=== PATIENT | male | born 1970 | race Caucasian/White ===

== ENCOUNTER 2021-03-03 06:35 | Day surgery (SDC) | payer BC, OTHER ==
[~2021-03-03] VITALS: Ht 198.1 cm; Wt 130.0 kg
[~2021-03-03 06:35] MED LIST: LISINOPRIL20 MG PO; METOPROLOL SUCC50 MG PO
--- NOTE | 2021-03-03 08:23 | NUR ---
03/03/21 0823 Alysha Collins 0856 PT ARRIVED TO PACU ON 2L VIA NC, PT WAKES EASILY AND DENIES PAIN AND NAUSEA. VSS.
--- NOTE | 2021-03-03 09:52 | NUR ---
PT ALERT, ORIENTED AND SUPPORTED BY HIS AMOS.PT IS HERE FOR HIS FIRST SCOPE. HE ADMITTED PREP WAS A LITTLE BIT OF A CHALLENGE, BUT MADE IT. AMOS WILL REMAIN TO LA. ALL QUESTIONS ASKED ANSWERED, PT REQUESTED PRAYER, WILL FOLLOW NEEDED
--- NOTE | 2021-03-04 15:08 | OR ---
[facility] [address] [place], [place] [address] Signed DATE OF OPERATION: 03/03/2021 SURGEON: Jose M Loepz MD PREOPERATIVE DIAGNOSES: 1. Colon screening. 2. Family history of colon cancer (uncles) .. POSTOPERATIVE DIAGNOSES: 1. Minimal diverticula of sigmoid. 2. Polyps x4. PROCEDURE: Total colonoscopy to cecum with hot snare polypectomy x3 and cold morcellation polypectomy x1. ANESTHESIA: Intravenous sedation, fentanyl 100 mcg and Versed 4 mg. INDICATION: This 50-year-old dark-skinned man is a patient of Dr. Saran Harmon of [place]. He is referred for colon screening. He has no symptoms of bleeding, diarrhea or constipation but does have family history of colon cancer in two maternal uncles. He is admitted at this time to undergo screening colonoscopy. He understands the risks of bleeding, infection, perforation, and other unforeseen complications. FINDINGS: The prep was quite excellent. Complete colonoscopy was undertaken to the cecum. He had scattered diverticula of the sigmoid colon. More notably he had four polyps, one about 8 mm in the proximal ascending colon and another about 3 mm and a relatively larger polyp of the rectum with a long stalk and at 40 cm a sessile polyp, all of them adenomatous in appearance. All were excised completely. There were no other findings of concern. He did have some external hemorrhoids as well. DESCRIPTION OF PROCEDURE: The patient was brought to the endoscopy suite and placed in the lateral decubitus position, given intravenous sedation to the point of slurred speech and nystagmus. Digital rectal examination was normal. An Olympus video colonoscope was passed in the rectum and manipulated throughout the Electronically Signed By: JOSE M LOPEZ MD 03/04/21 1508 PATIENT NAME: SUSI YANG OPERATIVE REPORT DATE OF : 68 REPORT #: [id number] PHYSICIAN: JOSE M LOPEZ MD PCP: SARAN HARMON MD REPORT IS CONFIDENTIAL AND NOT TO BE RELEASED WITHOUT AUTHORIZATION [facility] [address] [place], [place] [address] Signed colon ultimately intubating the cecum itself. The ileocecal valve and appendiceal orifice were normal. Noted was a sessile polyp at the junction between the ascending colon and the cecum. This was excised with hot snare polypectomy technique. Another small polyp nearby was excised with cold morcellation technique. The scope was withdrawn further. There were no other findings until the sigmoid at about 40 cm with another sessile polyp was noted, this was excised with hot snare technique as well. This was passed for pathology as well. Further withdrawal showed no other abnormality until the rectosigmoid at approximately 10 cm from much larger adenomatous polyp was noted. This was on a thin stalk. This was excised with hot snare polypectomy technique as well. All polyps were recovered and sent for pathology. Retroflexed view was otherwise normal. Scope was removed and the patient was taken to the recovery room in good condition. CONCLUDING DIAGNOSIS: Polyps x4, all excised and all retrieved. PLAN: Recommend repeat colonoscopy in three years, sooner if clinically indicated. He will return to the ongoing care of Dr. Harmon in [place] otherwise Jose M Lopez MD JM/MODL /[id number] cc: Saran Harmon MD Copies: SARAN HARMON MD ~ Electronically Signed By: JOSE M LOPEZ MD 03/04/21 1508 PATIENT NAME: SUSI YANG OPERATIVE REPORT DATE OF : [birth year] REPORT #: [id number] PHYSICIAN: JOSE M LOPEZ MD PCP: SARAN HARMON MD REPORT IS CONFIDENTIAL AND NOT TO BE RELEASED WITHOUT AUTHORIZATION
--- NOTE | 2021-03-06 15:31 | PATH ---
[facility] [address] [place], [place] [address] Signed SPECIMEN(S): A ASCENDING/RIGHT PROXIMAL COLON POLYP SPECIMEN(S): B SIGMOID COLON POLYP AT 40 CM SPECIMEN(S): C RECTAL COLON POLYP SPECIMEN SOURCE: A. ASCENDING/RIGHT PROXIMAL COLON POLYP B. SIGMOID COLON POLYP AT 40 CM C. RECTAL COLON POLYP CLINICAL HISTORY: Preop: Family history of colon cancer; screening. Postop: Polyps x 4; diverticulosis FINAL PATHOLOGIC DIAGNOSIS: A. Ascending / right proximal colon polyp: - Tubular adenoma (multiple fragments). B. Sigmoid colon polyp at 40 cm: - Tubular adenoma (one fragment). C. Rectal colon polyp: - Tubular adenoma (multiple fragments). JVR:juan:C2NR MICROSCOPIC EXAMINATION: Histologic sections of all submitted blocks are examined by light microscopy. These findings, together with the gross examination, support the pathologic diagnosis. GROSS DESCRIPTION: Three specimens are received in three containers, labeled "SR." A. The specimen, labeled "SR, #1," and designated on the requisition "proximal colon ascending/right polypectomy," is received in formalin and consists of seven red to johns soft tissue fragments that measure 0.2 to 0.8 cm in greatest dimension. The specimen is entirely submitted in cassette (A1). B. The specimen, labeled "SR, #2," and designated on the requisition "sigmoid colon polypectomy 40 cm," is received in formalin and consists of one polypoid johns soft tissue fragment that measures 0.6 cm in greatest dimension. The specimen is entirely submitted in cassette (B1). C. The specimen, labeled "SR #3," and designated on the requisition "rectum colon polypectomy," is received in formalin and consists of multiple johns soft tissue fragments that measure less than 0.1 PATIENT NAME: SUSI YANG PATHOLOGY DATE OF : [birth year] REPORT #: [id number] PHYSICIAN: SAMINA PATHOLOGY PCP: SARAN HARMON MD REPORT IS CONFIDENTIAL AND NOT TO BE RELEASED WITHOUT AUTHORIZATION [facility] [address] [place], [place] [address] Signed up to 1.2 cm in greatest dimension. Grossly definitive resection margins are not identified. The specimen is entirely submitted in cassette (C1). AI (under the direct supervision of a pathologist) The Gross Description was prepared using a voice recognition system. The report was reviewed for accuracy; however, sound-alike word errors, addition and/or deletions may occur. If there is any question about this report, please contact Client Services. PERFORMING LABORATORY: The technical component was performed by [facility], [address] [place] [address] (Pre Algebra Teacher: Shayy Romero MD; CLIA# [id number]). Professional interpretation was performed by [facility] [address]. Diagnostician: Sawyer Rebolledo MD Pathologist Electronically Signed 03/06/2021 Copies: ~ PATIENT NAME: SUSI YANG PATHOLOGY DATE OF : [birth year] REPORT #: [id number] PHYSICIAN: SAMINA AKERS PCP: SARAN HARMON MD REPORT IS CONFIDENTIAL AND NOT TO BE RELEASED WITHOUT AUTHORIZATION
== END 2021-03-03 08:48 | disposition home or self-care (01) ==
LOC: DS 06:35 → OPS 06:35 → DS 06:45 → OPS 06:45
PROVIDERS: ATTEND Surgery
PROC: 0DBN8ZZ Excision of Sigmoid Colon, Via Natural or Artificial Opening Endoscopic (ICD-10-PCS; 2021-03-03)
PROC: 0DBF8ZZ Excision of Right Large Intestine, Via Natural or Artificial Opening Endoscopic (ICD-10-PCS; 2021-03-03)
PROC: 0DBF8ZZ Excision of Right Large Intestine, Via Natural or Artificial Opening Endoscopic (ICD-10-PCS; principal; 2021-03-03 06:45)
DX: Z12.11 Encounter for screening for malignant neoplasm of colon (principal); D12.2 Benign neoplasm of ascending colon; D12.5 Benign neoplasm of sigmoid colon; D12.8 Benign neoplasm of rectum; K57.30 Diverticulosis of large intestine without perforation or abscess without bleeding; I10 Essential (primary) hypertension; Z80.0 Family history of malignant neoplasm of digestive organs; Z86.16 Personal history of COVID-19
CPT/HCPCS: 99153; G0500; J2250; J3010

== ENCOUNTER 2021-10-12 17:08 | Emergency (ER) | payer BC, OTHER ==
[~2021-10-12] VITALS: Ht 198.1 cm; Wt 130.8 kg
== END 2021-10-12 22:42 | disposition home or self-care (01) ==
LOC: ED 17:08
DX: E86.0 Dehydration (principal); M62.82 Rhabdomyolysis; I10 Essential (primary) hypertension; Z79.899 Other long term (current) drug therapy
CPT/HCPCS: 36415; 80053; 81001; 82553; 83735; 85025; 96360; 96361; 99284-25; J7030; J7121

== ENCOUNTER 2024-07-27 07:25 | Day surgery (SDC) | payer BC, OTHER ==
[~2024-07-27] VITALS: Ht 198.1 cm; Wt 127.3 kg
[~2024-07-27 07:25] MED LIST changes: +IBLOOD GLUCOSE TEST STRIP 1 EA TEST VI PRN; +LACTATED RINGER'S 1,000 ML IV SCH; +LIDOCAINE HCL 1% 5 ML SDV INJ ONE; +MIDAZOLAM HCL 5 MG/5 ML VIAL IV PRN; +fentaNYL citrate 100 MCG/2 ML VIAL IV PRN
[2024-07-27 07:42] VITALS: BP 149/97
[2024-07-27] MEDS ORDERED: MIDAZOLAM HCL 5 MG/5 ML VIAL ONE (08:49)
[2024-07-27] MEDS ORDERED: fentaNYL citrate 100 MCG/2 ML VIAL ONE (08:49)
--- NOTE | 2024-07-27 09:43 | NUR ---
07/27/24 0943 Lu Ramon 0930-PT ARRIVES TO PACU VIA STRETCHER, RESTING ON LT SIDE, PT A+O X4, DENIES PAIN OR NAUSEA VSS ON 2L VIA NC, PT ENCOURAGED TO PASS GAS. 0935-PT TITRATED TO RA, VS REMAIN STABLE, PT RESTING W/ EYES CLOSED BUT AWAKENS EASILY TO VOICE. 0938- AT BEDSIDE TO DISCUSS PROCEEDURE RESULTS AND PLAN OF CARE W/ PT, ALL QUESTIONS ANSWERED.
[2024-07-27 10:17] VITALS: BP 135/96
--- NOTE | 2024-07-27 14:33 | OR ---
[facility] [address] [place], [place] [address] Signed DATE OF OPERATION: 07/27/2024 SURGEON: Jose M Lopez MD PREOPERATIVE DIAGNOSES: 1. History of tubular adenomas 2020. 2. Recent discovery left thyroid nodule 1.5 cm. POSTOPERATIVE DIAGNOSES: 1. Sigmoid diverticulosis. 2. Small polyps x4 (probably hyperplastic). PROCEDURE: Total colonoscopy to cecum with cold morcellation polypectomy x4. ANESTHESIA: Intravenous sedation, fentanyl 100 mcg and Versed 8 mg. INDICATION: This 53-year-old white man is a patient of Dr. Saran Harmon in [place]. He underwent colonoscopy in 2020 by me where he was found to have four tubular adenomas. He has a family history of gastric cancer in an uncle, but no family members with colon cancer. On recent examination, I did discover a nodule in the left thyroid, confirmed on ultrasound to be a 1.5 cm thyroid nodule, for which he is going to undergo ultrasound-guided fine-needle aspiration biopsy by me next week. He is admitted at this time to undergo colonoscopy. He understands the risk of bleeding, infection, and perforation. FINDINGS: The prep was good. Complete colonoscopy was undertaken of the cecum. He had diverticula of the sigmoid colon. There were four small polyps, three in aggregate in the sigmoid and one in the left colon, all of them suggestive of hyperplasia rather than adenomatous change. There were no other findings of concern. DESCRIPTION OF PROCEDURE: The patient was brought to the endoscopy suite and placed in the lateral decubitus position, given intravenous sedation to the point of slurred speech and nystagmus with full cardiopulmonary monitoring. Digital rectal examination was normal. Electronically Signed By: JOSE M LOPEZ MD 07/27/24 1433 PATIENT NAME: SUSI YANG OPERATIVE REPORT DATE OF : 68 REPORT #: [id number] PHYSICIAN: JOSE M LOPEZ MD PCP: SARAN HARMON MD REPORT IS CONFIDENTIAL AND NOT TO BE RELEASED WITHOUT AUTHORIZATION [facility] [address] [place], [place] [address] Signed An Olympus video colonoscope was passed in the rectum and manipulated throughout the colon noting diverticula of the sigmoid and left colon. Scope was ultimately advanced to the cecum. The ileocecal valve and appendiceal orifice were normal. Scope was withdrawn. Examination from there showed no sign of abnormality into the mid descending colon where a small polyp appeared. This was excised with cold morcellation technique. Further withdrawal showed an aggregate of what appeared to be hyperplastic polyps of the sigmoid. These were excised in total three to be exact. Further withdrawal showed no other abnormality. Retroflexed view of the rectum was normal. Scope was removed. The patient was taken to the recovery room in good condition. CONCLUDING DIAGNOSES: 1. Polyps x4, probably hyperplastic. 2. Diverticulosis. 3. Asymptomatic left thyroid nodule. PLAN: Would recommend repeat colonoscopy in 5 years given the findings and depending on final pathology report of the polyps. He will be seeing me next week for fine-needle aspiration biopsy of the left thyroid nodule under ultrasound guidance. MD HOMERO Adhikari/CARLOS /[id number] cc: Saran Harmon MD Copies: SARAN HARMON MD ~ Electronically Signed By: JOSE M LOPEZ MD 07/27/24 1433 PATIENT NAME: ANIKA YANGHemalatha BLAKELY OPERATIVE REPORT DATE OF : 68 REPORT #: [id number] PHYSICIAN: JOSE M LOPEZ MD PCP: SARAN HARMON MD REPORT IS CONFIDENTIAL AND NOT TO BE RELEASED WITHOUT AUTHORIZATION
--- NOTE | 2024-07-31 11:48 | PATH ---
[facility] [address] [place], [place] [address] Signed SPECIMEN(S): A DESCENDING COLON POLYP SPECIMEN(S): B DESCENDING COLON POLYP SPECIMEN SOURCE: A. DESCENDING COLON POLYP B. DESCENDING COLON POLYP CLINICAL HISTORY: History of colon polyps, family history of colon cancer FINAL PATHOLOGIC DIAGNOSIS: A. Descending colon, polypectomy: - Prominent submucosal lymphoid aggregates. B. Descending colon, additional polyp, biopsy: - Mild superficial hyperplastic change. DWS:clv MICROSCOPIC EXAMINATION: Histologic sections of all submitted blocks are examined by light microscopy. These findings, together with the gross examination, support the pathologic diagnosis. GROSS DESCRIPTION: A. The specimen, labeled and designated "Villatoro, descending colon polyp," is received in formalin and consists of six johns soft tissue fragments, ranging from 0.1-0.4 cm. Entirely submitted in (A1). B. The specimen, labeled and designated "Villatoro, descending colon polyp," is received in formalin and consists of one johns soft tissue fragment, 0.2 cm. Entirely submitted in (B1). VB (under the direct supervision of a pathologist) The Gross Description was prepared using a voice recognition system. The report was reviewed for accuracy; however, sound-alike word errors, addition and/or deletions may occur. If there is any question about this report, please contact Client Services. PERFORMING LABORATORY: Technical component was performed by [facility] [address] [place] [id number] (CLIA# [id number]). Professional interpretation was performed by [facility], [address] [place] [id number] (CLIA#: [id number]). PATIENT NAME: SUSI VILLATORO PATHOLOGY DATE OF : 68 REPORT #: [id number] PHYSICIAN: SAMINA PATHOLOGY PCP: SARAN HARMON MD REPORT IS CONFIDENTIAL AND NOT TO BE RELEASED WITHOUT AUTHORIZATION [address] [address] Signed Diagnostician: Bowen Copeland MD Pathologist Diagnostician: Sawyer Rebolledo MD Pathologist Electronically Signed 07/31/2024 Copies: ~ PATIENT NAME: SUSI VILLATORO PATHOLOGY DATE OF : 68 REPORT #: [id number] PHYSICIAN: SAMINA PATHOLOGY PCP: SARAN HARMON MD REPORT IS CONFIDENTIAL AND NOT TO BE RELEASED WITHOUT AUTHORIZATION
== END 2024-07-27 10:25 | disposition home or self-care (01) ==
LOC: DS 07:25
PROVIDERS: ATTEND Surgery
PROC: 0DBN8ZX Excision of Sigmoid Colon, Via Natural or Artificial Opening Endoscopic, Diagnostic (ICD-10-PCS; 2024-07-27)
PROC: 0DBG8ZX Excision of Left Large Intestine, Via Natural or Artificial Opening Endoscopic, Diagnostic (ICD-10-PCS; principal; 2024-07-27 08:30)
DX: Z12.11 Encounter for screening for malignant neoplasm of colon (principal); K63.5 Polyp of colon; K57.30 Diverticulosis of large intestine without perforation or abscess without bleeding; I10 Essential (primary) hypertension; E04.1 Nontoxic single thyroid nodule; Z80.0 Family history of malignant neoplasm of digestive organs
CPT/HCPCS: 99153; G0500; J2250; J3010; J7121